=== PATIENT | female | born 1970 | race Caucasian/White ===

== ENCOUNTER 2016-11-10 23:59 | Emergency (ER) | payer BC ==
[2016-11-11 00:05] VITALS: TEMP 97.3
[2016-11-11] MEDS ORDERED: ASPIRIN 81 MG CHEW PO STA (00:27)
--- NOTE | 2016-11-11 00:35 | ED ---
Chest Pain HPI - General Chief Complaint: Chest Pain Stated Complaint: CHEST PAIN Time Seen by Provider: 11/11/16 00:27 Source: patient, RN notes reviewed Mode of arrival: wheelchair Limitations: no limitations - History of Present Illness Initial Comments: This a 46-year-old female presents emergency Department with chief complaint of epigastric pain, arm pain on and off for years. Patient states that she's had this for several years but was more prevalent today in which she had 4 episodes that lasted approximately 10-20 minutes. She states that she gets epigastric pain and she gets pain in bilateral arms, hand region. She denies any weakness. Denies any nausea, vomiting, diarrhea constipation. Patient states she has no history of diabetes, hypertension, hyperlipidemia. Patient is a daily smoker. She has no family history. Patient denies any associated symptoms other than the hand pain with her epigastric pain. She states nothing provokes her pain and nothing seems to subside it when present. This is not associated with food. Patient had a prior cholecystectomy. - Related Data Home Medications Medication Instructions Recorded Confirmed No Known Home Medications [No 06/12/15 11/11/16 Known Home Medications] Allergies Allergy/AdvReac Type Severity Reaction Status Date / Time No Known Allergies Allergy Verified 11/11/16 00:05 Review of Systems ROS Statement: Those systems with pertinent positive or pertinent negative responses have been documented in the HPI. ROS Other: All systems not noted in ROS Statement are negative. EKG Findings - EKG Comments: EKG Findings:: EKG performed at 0:23 normal sinus rhythm with incomplete right bundle kayla block rate of 71, AR interval 122, QRS duration 106, QT/QTC 434/ 471 Past Medical History Additional Past Medical History / Comment(s): anemia, History of Any Multi-Drug Resistant Organisms: None Reported Past Surgical History: Section, Cholecystectomy, Hysterectomy Past Psychological History: Anxiety Smoking Status: Current every day smoker Past Alcohol Use History: None Reported Past Drug Use History: None Reported General Exam Limitations: no limitations General appearance: alert, in no apparent distress Head exam: Present: atraumatic, normocephalic, normal inspection Eye exam: Present: normal appearance, PERRL, EOMI. Absent: scleral icterus, conjunctival injection, periorbital swelling ENT exam: Present: normal exam, normal oropharynx, mucous membranes moist, TM's normal bilaterally, normal external ear exam Neck exam: Present: normal inspection, full ROM. Absent: tenderness, meningismus, lymphadenopathy Respiratory exam: Present: normal lung sounds bilaterally. Absent: respiratory distress, wheezes, rales, rhonchi, stridor, chest wall tenderness, accessory muscle use Cardiovascular Exam: Present: regular rate, normal rhythm, normal heart sounds. Absent: systolic murmur, diastolic murmur, rubs, gallop, clicks GI/Abdominal exam: Present: soft, normal bowel sounds. Absent: distended, tenderness, guarding, rebound, rigid Back exam: Absent: CVA tenderness (R), CVA tenderness (L) Neurological exam: Present: alert Course Vital Signs 11/11/16 00:02 Temperature 97.3 F L Pulse Rate 83 Respiratory 18 Rate Blood Pressure 132/73 O2 Sat by Pulse 99 Oximetry Chest Pain MDM - MDM 46-year-old female presents emergency department for chest pain. Patient's chest pain has been present for years. This is atypical chest pain and less likely cardiac in nature. Patient's pain may related to anxiety as a comes and goes. Patient will be discharged at this time with follow-up with her primary care physician. Return parameters were discussed. Disposition Clinical Impression: Atypical chest pain Disposition: HOME SELF-CARE Condition: Stable Instructions: Chest Pain (ED) Additional Instructions: Follow-up with your primary care physician in one to 2 days.Please return to the Emergency Department if symptoms worsen or any other concerns. Time of Disposition: 02:11
[2016-11-11 01:15] LABS: Basophils # (A) 0.1 k/uL (0-0.2); Basophils % (A) 1 %; CH 34.8; CHCM 33.6; Eosinophils # (A) 0.1 k/uL (0-0.7); Eosinophils % (A) 1 %; HDW 2.27; HGB 13.2 gm/dL (11.4-16.0); Luc # (Auto) 0.12; Luc % (Auto) 2; Lymphocytes # (A) 2.6 k/uL (1.0-4.8); Lymphocytes % (A) 38 %; MCH 34.2 pg (25.0-35.0); MCHC 32.9 g/dL (31.0-37.0); MCV 103.9 fL (80.0-100.0); Macrocytosis Slight; Mean Platelet Volume 6.7; Monocytes # (A) 0.4 k/uL (0-1.0); Monocytes % (A) 5 %; Neutrophils # (A) 3.6 k/uL (1.3-7.7); Neutrophils % (A) 53 %; RBC 3.85 m/uL (3.80-5.40); RDW 13.2 % (11.5-15.5); WBC 6.9 k/uL (3.8-10.6); WBC (Perox) 6.72
--- NOTE | 2016-11-11 01:15 | XR ---
EXAM: XR Chest, 2 Views. CLINICAL HISTORY: Reason: Chest Pain TECHNIQUE: Frontal and lateral views of the chest. COMPARISON: None FINDINGS: Hardware: None. Lungs/pleura: Normal. No focal consolidation. No pleural effusion or pneumothorax. Heart/mediastinum: Normal. No cardiomegaly. Soft tissues: Unremarkable. Bones: No acute fracture. Upper abdomen: Normal. IMPRESSION: No acute disease.
[2016-11-11 01:25] LABS: ALT 27 U/L (9-52); AST 15 U/L (14-36); Alkaline Phosphatase 39 U/L (38-126); Anion Gap 8 mmol/L; Blood Urea Nitrogen 12 mg/dL (7-17); Calcium 9.5 mg/dL (8.4-10.2); Carbon Dioxide 22 mmol/L (22-30); Chloride 109 mmol/L (98-107); Glucose 87 mg/dL (74-99); Magnesium 1.9 mg/dL (1.6-2.3); Non-African American GFR(MDRD) >60 (>60 ml/min/1.73 sqM); Potassium 3.8 mmol/L (3.5-5.1); Sodium 139 mmol/L (137-145); Total Bilirubin 0.3 mg/dL (0.2-1.3)
[2016-11-11 01:41] LABS: Partial Thromboplastin Time 24.8 sec (22.0-30.0); Prothrombin Time 10.1 sec (9.0-12.0)
[2016-11-11 01:52] LABS: Creatine Kinase 78 U/L (30-135)
[2016-11-11 02:05] LABS: Creatine Kinase MB 1.3 ng/mL (0.0-2.4); Troponin I <0.012 ng/mL (0.000-0.034)
[2016-11-11 02:25] VITALS: BP 105/55; PULSE 73; RESP 16
== END 2016-11-11 02:19 | disposition home or self-care (01) ==
LOC: EC 23:59
DX: R07.89 Other chest pain (principal); M79.641 Pain in right hand; M79.642 Pain in left hand; F17.200 Nicotine dependence, unspecified, uncomplicated; Z90.49 Acquired absence of other specified parts of digestive tract
CPT/HCPCS: 36415; 71020; 80053; 82550; 82553; 83735; 84484; 85025; 85610; 85730; 93005; 99285

== ENCOUNTER → 2020-10-05 | Outpatient (CLI) | payer BC ==
--- NOTE | 2020-10-05 16:01 | US ---
EXAMINATION TYPE: US carotid duplex BILAT DATE OF EXAM: 10/05/2020 COMPARISON: NONE CLINICAL HISTORY: I65.23 occlusion and stenosis of bilateral. stenosis EXAM MEASUREMENTS: RIGHT: Peak Systolic Velocity (PSV) cm/sec ----- Right CCA: 130 ----- Right ICA: 139 ----- Right ECA: 153 ICA/CCA ratio: 1.1 RIGHT: End Diastole cm/sec ----- Right CCA: 47.6 ----- Right ICA: 49.7 ----- Right ECA: 23.2 LEFT: Peak Systolic Velocity (PSV) cm/sec ----- Left CCA: 135 ----- Left ICA: 142 ----- Left ECA: 135 ICA/CCA ratio: 1.1 LEFT: End Diastole cm/sec ----- Left CCA: 47.2 ----- Left ICA: 50.6 ----- Left ECA: 36.9 VERTEBRALS (direction of flow): Right Vertebral: Antegrade Left Vertebral: Antegrade Rhythm: Normal No significant stenosis seen IMPRESSION: There are elevated velocities in the internal carotid arteries bilaterally. Correlate fo r narrowing between 50-69%. Vascular anomaly to account for this elevated velocity such as a large pl aques or intimal thickening however not identified. Consider additional workup identified etiology th e elevated velocities. Criteria for Assigning % of Stenosis / Diameter reduction (Estimation based on the indirect measurements of the internal carotid artery velocities (ICA PSV). 1. Normal (no stenosis)=ICA PSV < 125 cm/s: ratio < 2.0: ICA EDV<40 cm/s. 2. Less than 50% stenosis=ICA PSV < 125 cm/s: ratio < 2.0: ICA EDV<40 cm/s. 3. 50 to 69% stenosis=ICA PSV of 125 to 230 cm/s: ration 2.0 ? 4.0: ICA EDV 40-100 cm/s. 4. Greater than 70% stenosis to near occlusion= ICA PSV > 230 cm/s: ratio > 4.0: ICA EDV > 100 cm/s. 5. Near occlusion= ICA PSV velocities may be low or undetectable: variable ratio and ICA EDV. 6. Total occlusion=unable to detect flow.
== END ==
LOC: RADUSWWP 15:21
PROVIDERS: ATTEND Family Medicine
DX: I65.23 Occlusion and stenosis of bilateral carotid arteries (principal)
CPT/HCPCS: 93880

== ENCOUNTER → 2020-10-09 | Outpatient (CLI) | payer BC ==
--- NOTE | 2020-10-09 19:00 | ECHOF ---
Referral Reason:R06.00 Dyspnea MEASUREMENTS -------- HEIGHT: 152.4 cm WEIGHT: 53.5 kg BP: RVIDd: 2.4 cm (< 3.3) IVSd: 0.8 cm (0.6 - 1.1) LVIDd: 3.8 cm (3.9 - 5.3) LVPWd: 0.9 cm (0.6 - 1.1) IVSs: 1.1 cm LVIDs: 2.9 cm LVPWs: 1.1 cm LAESV Index (A-L): 16.36 ml/m Ao Diam: 2.8 cm (2.0 - 3.7) AV Cusp: 1.9 cm (1.5 - 2.6) MV EXCURSION: 22.126 mm (> 18.000) MV EF SLOPE: 73 mm/s (70 - 150) EPSS: 0.3 cm MV E Judd: 0.58 m/s MV DecT: 236 ms MV A Judd: 0.50 m/s MV E/A Ratio: 1.17 RAP: 5.00 mmHg RVSP: 24.18 mmHg FINDINGS -------- Sinus rhythm. This was a technically adequate study. LV size, wall thickness and systolic function are normal, with an EF greater than 55%. The left bella tricular size is normal. The diastolic filling pattern is normal for the age of the patient 7.09. The right ventricle is normal in size. Normal LA size by volume 22+/-6 ml/m2. The right atrial size is normal. The aortic valve is trileaflet, and appears structurally normal. No aortic stenosis or regurgitation. The mitral valve leaflets are mildly thickened. Mild mitral regurgitation is present. The tricuspid valve appears structurally normal. Mild tricuspid regurgitation present. Right vent ricular systolic pressure is normal at < 35 mmHg. There is no evidence of pulmonary hypertension. There is no pulmonic regurgitation present. The aortic root size is normal. There is no pericardial effusion. CONCLUSIONS -------- 1. LV size, wall thickness and systolic function are normal, with an EF greater than 55%. 2. Normal LA size by volume 22+/-6 ml/m2. 3. The aortic valve is trileaflet, and appears structurally normal. No aortic stenosis or regurgitati on. 4. Mild mitral regurgitation is present. 5. Mild tricuspid regurgitation present. 6. There is no pericardial effusion. ATMOSPHERIC PHYSICS PROFESSOR: Jojo Hernandez RDCS
== END ==
LOC: RADECHMAIN 12:03
PROVIDERS: ATTEND Family Medicine
DX: I08.1 Rheumatic disorders of both mitral and tricuspid valves (principal)
CPT/HCPCS: 93306

== ENCOUNTER → 2022-01-15 | Outpatient (CLI) | payer BC ==
--- NOTE | 2022-01-16 05:54 | MR ---
EXAMINATION TYPE: MR hand RT wo/w con DATE OF EXAM: 01/15/2022 COMPARISON: None HISTORY: Mass first webspace R hand, pain CONTRAST: Standard multiplanar, multisequence MRI departmental protocol images were obtained without contrast a nd with 5.5 mL intravenous Gadavist gadolinium contrast. There is a marker placed on the dorsum of the hand between the first and second metacarpals. No soft tissue mass seen. Carpal bones are intact. Metacarpals are intact. There is no evidence of a fracture . No evidence of focal bone destruction. No pathologic fluid collection. Digital bones appear intact Contrast images show no pathologic enhancement. IMPRESSION: Negative MR scan of the right hand. No evidence of a mass
== END | disposition home or self-care (01) ==
LOC: RADMRIMAIN 07:49
PROVIDERS: ATTEND Orthopaedic Surgery
DX: M79.641 Pain in right hand (principal); R22.31 Localized swelling, mass and lump, right upper limb
CPT/HCPCS: 73220; A9585

== ENCOUNTER 2022-01-20 14:21 | Observation (INO) | payer BC ==
[2022-01-20] MEDS ORDERED: NITROGLYCERIN OINT 1 INCH/GM PACKET TOPICAL STA (14:51)
[2022-01-20] MEDS ORDERED: ASPIRIN 81 MG PO STA (14:51)
--- NOTE | 2022-01-20 14:56 | ED ---
General Adult HPI - General Chief complaint: Chest Pain Stated complaint: Chest Pain, Heart history Time Seen by Provider: 01/20/22 14:25 Source: patient, RN notes reviewed, old records reviewed Mode of arrival: ambulatory Limitations: no limitations - History of Present Illness Initial comments: This is a 51-year-old female with past medical history significant for smoking and bypass surgery. Patient states since Thursday she's been having intermittent chest pain with radiation of the pain to her back and down both arms. Patient states it typically last 3-4 minutes but is the same kind of pain she had when she had her bypass surgery. Patient denies any shortness of breath. Patient denies any diaphoretic episodes. Patient denies any nausea. Patient denies any abdominal pain. Patient denies any recent fever chills or cough. Patient denies any lightheadedness or dizziness or near syncopal episode. Patient denies swelling to the legs or calf tenderness. - Related Data Home Medications Medication Instructions Recorded Confirmed Aspirin EC [Ecotrin Low Dose] 81 mg PO DAILY 01/20/22 01/20/22 Atorvastatin Calcium [Lipitor] 40 mg PO HS 01/20/22 01/20/22 Rivaroxaban [Xarelto] 2.5 mg PO DAILY 01/20/22 01/20/22 Allergies Allergy/AdvReac Type Severity Reaction Status Date / Time No Known Allergies Allergy Verified 01/20/22 16:45 Review of Systems ROS Statement: Those systems with pertinent positive or pertinent negative responses have been documented in the HPI. ROS Other: All systems not noted in ROS Statement are negative. Past Medical History Past Medical History: Coronary Artery Disease (CAD) Additional Past Medical History / Comment(s): anemia, History of Any Multi-Drug Resistant Organisms: None Reported Past Surgical History: Section, Cholecystectomy, Hysterectomy Additional Past Surgical History / Comment(s): cabg 2017 Past Psychological History: Anxiety Smoking Status: Current every day smoker Past Alcohol Use History: None Reported Past Drug Use History: None Reported General Exam - General Exam Comments Initial Comments: GENERAL: Patient is well-developed and well-nourished. Patient is nontoxic and well- hydrated and is in mild distress. ENT: Neck is soft and supple. No significant lymphadenopathy is noted. Oropharynx is clear. Moist mucous membranes. Neck has full range of motion without eliciting any pain. EYES: The sclera were anicteric and conjunctiva were pink and moist. Extraocular movements were intact and pupils were equal round and reactive to light. Eyelids were unremarkable. PULMONARY: Unlabored respirations. Good breath sounds bilaterally. No audible rales rhonchi or wheezing was noted. CARDIOVASCULAR: There is a regular rate and rhythm without any murmurs gallops or rubs. ABDOMEN: Soft and nontender with normal bowel sounds. SKIN: Skin is clear with no lesions or rashes and otherwise unremarkable. NEUROLOGIC: Patient is alert and oriented x3. Cranial nerves II through XII are grossly intact. Motor and sensory are also intact. Normal speech, volume and content. Symmetrical smile. MUSCULOSKELETAL: Normal extremities with adequate strength and full range of motion. LYMPHATICS: No significant lymphadenopathy is noted PSYCHIATRIC: Normal psychiatric evaluation. Limitations: no limitations Course Vital Signs 01/20/22 14:23 Temperature 97.1 F L Pulse Rate 61 Respiratory 18 Rate Blood Pressure 103/67 O2 Sat by Pulse 98 Oximetry Medical Decision Making - Medical Decision Making EKG shows sinus tachycardia at 103 bpm SC interval is 116 QRS is 98 QT interval 340 QTC is 408. Patient's EKG shows ST segment depression in leads II, III, and F aVF as well as T-wave inversions in precordial leads V3 through V6. Patient's chest x-ray showed no acute abnormality. I started the patient on heparin for the unstable angina she was feeling considerably better when I went back and interviewed her. She thinks Nitropaste may help. I spoke with some physicians agreed to admit the patient admitted the patient wrote admitting orders. - Lab Data Result diagrams: 01/20/22 14:58 01/20/22 14:58 Lab Results 01/20/22 01/20/22 01/20/22 Range/Units 14:58 14:58 14:58 WBC 8.1 (3.8-10.6) k/uL RBC 4.34 (3.80-5.40) m/uL Hgb 14.3 (11.4-16.0) gm/dL Hct 43.1 (34.0-46.0) % MCV 99.3 (80.0-100.0) fL MCH 32.9 (25.0-35.0) pg MCHC 33.1 (31.0-37.0) g/dL RDW 12.7 (11.5-15.5) % Plt Count 264 (150-450) k/uL MPV 7.0 Neutrophils % 62 % Lymphocytes % 28 % Monocytes % 6 % Eosinophils % 2 % Basophils % 1 % Neutrophils # 5.0 (1.3-7.7) k/uL Lymphocytes # 2.3 (1.0-4.8) k/uL Monocytes # 0.5 (0-1.0) k/uL Eosinophils # 0.2 (0-0.7) k/uL Basophils # 0.1 (0-0.2) k/uL PT 10.3 (9.0-12.0) sec INR 0.9 (<1.2) APTT 24.3 (22.0-30.0) sec Sodium 138 (137-145) mmol/L Potassium 3.9 (3.5-5.1) mmol/L Chloride 109 H (98-107) mmol/L Carbon Dioxide 24 (22-30) mmol/L Anion Gap 5 mmol/L BUN 12 (7-17) mg/dL Creatinine 0.98 (0.52-1.04) mg/dL Est GFR (CKD-EPI)AfAm 76 (>60 ml/min/1.73 sqM) Est GFR (CKD-EPI)NonAf 66 (>60 ml/min/1.73 sqM) Glucose 109 H (74-99) mg/dL Calcium 9.5 (8.4-10.2) mg/dL Magnesium 1.8 (1.6-2.3) mg/dL Total Bilirubin 0.3 (0.2-1.3) mg/dL AST 20 (14-36) U/L ALT 17 (4-34) U/L Alkaline Phosphatase 60 (38-126) U/L Troponin I (0.000-0.034) ng/mL NT-Pro-B Natriuret Pep pg/mL Total Protein 6.4 (6.3-8.2) g/dL Albumin 4.0 (3.5-5.0) g/dL 01/20/22 01/20/22 Range/Units 14:58 14:58 WBC (3.8-10.6) k/uL RBC (3.80-5.40) m/uL Hgb (11.4-16.0) gm/dL Hct (34.0-46.0) % MCV (80.0-100.0) fL MCH (25.0-35.0) pg MCHC (31.0-37.0) g/dL RDW (11.5-15.5) % Plt Count (150-450) k/uL MPV Neutrophils % % Lymphocytes % % Monocytes % % Eosinophils % % Basophils % % Neutrophils # (1.3-7.7) k/uL Lymphocytes # (1.0-4.8) k/uL Monocytes # (0-1.0) k/uL Eosinophils # (0-0.7) k/uL Basophils # (0-0.2) k/uL PT (9.0-12.0) sec INR (<1.2) APTT (22.0-30.0) sec Sodium (137-145) mmol/L Potassium (3.5-5.1) mmol/L Chloride (98-107) mmol/L Carbon Dioxide (22-30) mmol/L Anion Gap mmol/L BUN (7-17) mg/dL Creatinine (0.52-1.04) mg/dL Est GFR (CKD-EPI)AfAm (>60 ml/min/1.73 sqM) Est GFR (CKD-EPI)NonAf (>60 ml/min/1.73 sqM) Glucose (74-99) mg/dL Calcium (8.4-10.2) mg/dL Magnesium (1.6-2.3) mg/dL Total Bilirubin (0.2-1.3) mg/dL AST (14-36) U/L ALT (4-34) U/L Alkaline Phosphatase (38-126) U/L Troponin I <0.012 (0.000-0.034) ng/mL NT-Pro-B Natriuret Pep 54 pg/mL Total Protein (6.3-8.2) g/dL Albumin (3.5-5.0) g/dL Critical Care Time Critical Care Time: Yes Total Critical Care Time: 35 Disposition Clinical Impression: Unstable angina pectoris Disposition: ADMITTED IP TO THIS HOSP Referrals: Roberto Campoverde MD [Primary Care Provider] - 1-2 days
--- NOTE | 2022-01-20 15:17 | XR ---
EXAMINATION TYPE: XR chest 2V DATE OF EXAM: 01/20/2022 COMPARISON: 12/23/2021 INDICATION: Chest pain TECHNIQUE: Single frontal view of the chest is obtained. FINDINGS: The heart size is normal. The pulmonary vasculature is normal. The lungs are clear. Epicardial leads are evident. Sternotomy wires are present from prior CABG. IMPRESSION: 1. No acute pulmonary process.
[2022-01-20 15:20] LABS: Basophils # (A) 0.1 k/uL (0-0.2); Basophils % (A) 1 %; Eosinophils # (A) 0.2 k/uL (0-0.7); Eosinophils % (A) 2 %; HCT 43.1 % (34.0-46.0); HGB 14.3 gm/dL (11.4-16.0); Lymphocytes # (A) 2.3 k/uL (1.0-4.8); Lymphocytes % (A) 28 %; MCH 32.9 pg (25.0-35.0); MCHC 33.1 g/dL (31.0-37.0); MCV 99.3 fL (80.0-100.0); Monocytes # (A) 0.5 k/uL (0-1.0); Monocytes % (A) 6 %; Neutrophils % (A) 62 %; Platelet Count 264 k/uL (150-450); RBC 4.34 m/uL (3.80-5.40); RDW 12.7 % (11.5-15.5); WBC 8.1 k/uL (3.8-10.6)
[2022-01-20 15:39] LABS: INR 0.9 (<1.2); Partial Thromboplastin Time 24.3 sec (22.0-30.0); Prothrombin Time 10.3 sec (9.0-12.0)
[2022-01-20 15:40] LABS: Calcium 9.5 mg/dL (8.4-10.2); Magnesium 1.8 mg/dL (1.6-2.3); Potassium 3.9 mmol/L (3.5-5.1); Total Bilirubin 0.3 mg/dL (0.2-1.3); Total Protein 6.4 g/dL (6.3-8.2)
[2022-01-20] MEDS ORDERED: HEPARIN SODIUM 1,000 UN/ML (10ML VL) IV ONE (17:08)
[2022-01-20] MEDS ORDERED: HEPARIN SOD,PORK IN 0.45% NACL 25,000 UNIT in 0.45% NACL 1 250ML.BAG IV SCH (17:15)
[2022-01-20] MEDS ORDERED: NITROGLYCERIN SL TABS 0.4 MG TAB SUBLINGUAL PRN (17:18)
[2022-01-20] MEDS ORDERED: NITROGLYCERIN OINT 1 INCH/GM PACKET TOPICAL SCH (18:00)
--- NOTE | 2022-01-20 18:12 | P.HPIM ---
History of Present Illness H&P Date: 01/20/22 History of Presenting Illness: Patient is a 51-year-old female with a past medical history of sudden cardiac arrest with ROSC followed by CABG x 3 in 2017 and nicotine dependence smoking one pack of cigarettes daily. 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 She reports her PCP manages her medications and states that he recently about one year ago started her on Xarelto for cardiovascular event risk reduction. Patient presented to the emergency department today with a chief complaint of chest pain. She reports that she had been experiencing intermittent pain to midsternal chest radiating into her back and down both arms. Patient reports this pain has waxed and waned since Thursday and seems to be worse with activity, patient reports it is the same feeling she had prior to her cardiac arrest resulting in her CABG. Patient denies having any headache, lightheadedness, dizziness, diaphoresis, palpitations, shortness of breath, cough or congestion, nausea, vomiting, or experiencing any numbness/tingling/weakness/swelling in her extremities. Patient states she is on aspirin 81 mg daily, atorvastatin 40 mg daily, and Xarelto 2.5 mg daily. She denies missing any of her medications. She does admit to smoking approximately one pack of cigarettes daily or so. She denies any alcohol or drug use. Patient underwent full evaluation in the emergency department. EKG revealing sinus tachycardia at [address] depression in inferior leads II, III, and aVF. Chest x-ray negative for acute cardiopulmonary process. CBC, coags, and CMP unremarkable. Troponin less than 0.012. Patient was given aspirin 324 mg 1 dose along with Nitro past and started on Heparin infusion for unstable angina. Patient has been admitted under our services with consultation to cardiology. Review of systems: Pertinent positives and negatives as discussed in HPI, a complete review of systems was performed and all other systems are negative. Physical exam: Vital signs reviewed and stable. General: Nontoxic, no distress and appears stated age. Derm: Skin warm and dry, normal coloration for ethnicity. Head: Atraumatic, normocephalic and symmetric. Eyes: EOMs intact, no lid lag, and anicteric sclera Mouth: no lip lesions, mucus membranes moist Cardiovascular: regular rate and rhythm with normal S1S2, soft systolic murmur, positive posterior tibial pulses bilaterally, and cap refill < 2 seconds. Lungs: Respirations even, regular, and unlabored on room air. Lungs CTA bilaterally, no rhonchi, no rales, no wheezing, and no accessory muscle usage. Abdominal: soft, nontender to palpation, no guarding, no appreciable organomegaly Ext: ROM intact. No gross muscle atrophy, no edema, no contractures Neuro: Speech clear, face symmetrical and CN II-XII grossly intact with no noted focal neuro deficits Psych: Alert and oriented to person, place, time, and situation. Appropriate and pleasant affect. Assessment and Plan of Care: Unstable angina Chest pain, rule out acute coronary event History of CAD with CABG x 3 -Cardiology consulted, appreciate further recommendations -Telemetry monitoring -Trend troponins -Cardiac diet, NPO at midnight -Aspirin, atorvastatin, Nitropaste and continuation of heparin infusion -Lipid profile with a.m. labs. -Echocardiogram Nicotine dependence -Patient to receive continued encouragement and education on the importance of smoking cessation and the risks associated with continued use. -Nicotine patch The patient is admitted with an anticipated less than 2 midnight stay for evaluation of chest pain. CODE STATUS: Full code DVT prophylaxis: Heparin Discussed with: Patient and her Anticipated discharge date: 1-[address]: Home A total of 45 minutes was spent on the care of this complex patient more than 50% of the time was spent in counseling and care coordination. Past Medical History Past Medical History: Coronary Artery Disease (CAD) Additional Past Medical History / Comment(s): anemia, History of Any Multi-Drug Resistant Organisms: None Reported Past Surgical History: Section, Cholecystectomy, Hysterectomy Additional Past Surgical History / Comment(s): cabg 2016 Past Psychological History: Anxiety Smoking Status: Current every day smoker Past Alcohol Use History: None Reported Past Drug Use History: None Reported Medications and Allergies Home Medications Medication Instructions Recorded Confirmed Type Aspirin EC [Ecotrin Low Dose] 81 mg PO DAILY 01/20/22 01/20/22 History Atorvastatin Calcium [Lipitor] 40 mg PO HS 01/20/22 01/20/22 History Rivaroxaban [Xarelto] 2.5 mg PO DAILY 01/20/22 01/20/22 History Allergies Allergy/AdvReac Type Severity Reaction Status Date / Time No Known Allergies Allergy Verified 01/20/22 16:45 Physical Exam Vitals: Vital Signs Temp Pulse Resp BP Pulse Ox 01/20/22 14:23 97.1 F L 61 18 103/67 98 Intake and Output 01/20/22 01/20/22 01/20/22 06:59 14:59 22:59 Other: Weight 55.338 kg Results CBC & Chem 7: 01/20/22 14:58 01/20/22 14:58 Labs: Abnormal Lab Results - Last 24 Hours (Table) 01/20/22 Range/Units 14:58 Chloride 109 H (98-107) mmol/L Glucose 109 H (74-99) mg/dL
[2022-01-20] MEDS ORDERED: ATORVASTATIN 40 MG TAB PO SCH (21:00)
[2022-01-20] MEDS: NITROGLYCERIN OINT 1 INCH/GM PACKET TOPICAL SCH (22:27)
[2022-01-21] MEDS: NITROGLYCERIN OINT 1 INCH/GM PACKET TOPICAL SCH (03:28)
[2022-01-21] MEDS: NICOTINE 21MG/24HR PATCH TRANSDERM SCH ×2 (03:28→08:38)
[2022-01-21] MEDS ORDERED: HEPARIN SODIUM 1,000 UN/ML (10ML VL) IV ONE (07:24)
[2022-01-21 07:30] VITALS: RESP 16
[2022-01-21] MEDS ORDERED: REGADENOSON 0.4 MG/5 ML SYRINGE IV PRN (08:33)
[2022-01-21] MEDS ORDERED: AMINOPHYLLINE 500 MG/20 ML VIAL IV PRN (08:33)
[2022-01-21] MEDS ORDERED: CAFFEINE CITRATE 60 MG/3 ML VIAL IV PRN (08:33)
[2022-01-21] MEDS ORDERED: ASPIRIN 325 MG TAB PO SCH (09:00)
[2022-01-21 09:56] LABS: Chol/HDL Ratio 2.21 Ratio; LDL Cholesterol,Calculated 65.8 mg/dL (0.0-131.0); VLDL Calculation 12.92 mg/dL (5.00-40.00)
--- NOTE | 2022-01-21 10:31 | P.CRDCN ---
History of Present Illness History of present illness: HISTORY OF PRESENTING ILLNESS This is a pleasant 51-year-old female past medical history significant for coronary artery disease s/p CABG in 2017 and cardiac arrest at that time at [place], [facility]. She did follow with Dr. Root, but currently does not see a coat fitter regularly. She sees Dr. Trejo as her primary. We have been asked to see in consultation for chest pain. Patient presents emergency department with complaints of chest pain. She states yesterday she was having right sided and midsternal chest pain. Non-exertional, she was having the pain at rest. Intermittent, lasting 3-4 minutes at a time. Having the chest discomfort about 4 times a day. Radiating to her bilateral arms. She has associated lightheadedness and headache. She denies any associated shortness of breath, dizziness, palpitations, diaphoresis, nausea, vomiting. She denies any syncope or loss of consciousness. She denies any symptoms of orthopnea or PND. She states the symptoms were similar to when she had a cardiac arrest in 2017/presents emergency department for reevaluation. Patient states she is on Xarelto per Dr. Kelsey, which she saw years ago and had an ultrasound of her bilateral legs, was told that was normal. She currently smokes 1 PPD. DIAGNOSTICS EKG reveals sinus tachycardia, heart rate 103, short DC, incomplete right bundle branch block, ST depression in inferior and anterior leads noted. Repeat EKG this morning revealed sinus bradycardia with heart rate 52, incomplete left bundle branch block, no ST depressions noted, nonspecific abnormalities. Telemetry tracings indicate sinus rhythm with heart rate in the 50s to 60s Chest xray no acute cardiopulmonary process Laboratory reviewed, troponin negative 3, proBNP 54, triglycerides 64, LDL 65, HDL 65, cholesterol 144, sodium 138, potassium 3.9, BUN 12, serum creatinine 0.9, magnesium 1.8, CBC unremarkable Current home medications include Xarelto 25 mg daily, aspirin 81 mg daily, atorvastatin 40 mg nightly REVIEW OF SYSTEMS CONSTITUTIONAL: Denies fever or chills. CARDIOVASCULAR: + chest pain, Denies shortness of breath, orthopnea, PND or palpitations. RESPIRATORY: Denies cough. GASTROINTESTINAL: Denies abdominal pain, diarrhea, constipation, nausea or vomiting. MUSCULOSKELETAL: Denies myalgias. NEUROLOGIC: Denies numbness, tingling, headache or weakness. ENDOCRINE: Denies fatigue, weight change, polydipsia or polyurina. GENITOURINARY: Denies burning, hematuria or urgency with micturation. HEMATOLOGIC: Denies history of anemia or bleeding. PHYSICAL EXAMINATION Blood pressure 103/66, heart rate 56, afebrile, oxygen saturation 97% on room air CONSTITUTIONAL: No apparent distress. HEENT: Head is normocephalic. Pupils are equal, round. Sclerae anicteric. Mucous membranes of the mouth are moist. No JVD. No carotid bruit. CHEST EXAMINATION: Lungs are clear to auscultation. No chest wall tenderness is noted on palpation or with deep breathing. HEART EXAMINATION: Regular rate and rhythm. S1, S2 heard. No murmurs, gallops or rub. ABDOMEN: Soft, nontender. Positive bowel sounds. EXTREMITIES: 2+ peripheral pulses, no lower extremity edema and no calf tenderness. SKIN:warm, dry NEUROLOGIC EXAMINATION: Patient is awake, alert and oriented x3. ASSESSMENT Chest pain, atypical, acute coronary syndrome has been ruled out Hypotension History of hyperlipidemia Coronary artery disease s/p CABG in 2017 PLAN An acute coronary event has been ruled out with no EKG evidence of ischemia and negative cardiac enzymes. Obtain 2D echocardiogram and doppler study to assess cardiac structure and function. Perform Lexiscan stress test to assess for stress induced cardiac ischemia. If abnormal will consider coronary angiography. If stress test is negative, no further inpatient testing at this time from a cardiology perspective Smoking cessation discussed and highly recommended. Recommend close follow up with Cardiology as an outpatient Thank you kindly for this consultation. Nurse practitioner note has been reviewed by physician. Signing provider agrees with the documented findings, assessment, and plan of care. Past Medical History Past Medical History: Coronary Artery Disease (CAD) Additional Past Medical History / Comment(s): anemia, History of Any Multi-Drug Resistant Organisms: None Reported Past Surgical History: Section, Cholecystectomy, Hysterectomy Additional Past Surgical History / Comment(s): cabg 2017 Past Anesthesia/Blood Transfusion Reactions: No Reported Reaction Past Psychological History: Anxiety Smoking Status: Current every day smoker Past Alcohol Use History: None Reported Past Drug Use History: None Reported Medications and Allergies Home Medications Medication Instructions Recorded Confirmed Type Aspirin EC [Ecotrin Low Dose] 81 mg PO DAILY 01/20/22 01/20/22 History Atorvastatin Calcium [Lipitor] 40 mg PO HS 01/20/22 01/20/22 History Rivaroxaban [Xarelto] 2.5 mg PO DAILY 01/20/22 01/20/22 History Allergies Allergy/AdvReac Type Severity Reaction Status Date / Time No Known Allergies Allergy Verified 01/20/22 16:45 Physical Exam Vitals: Vital Signs Temp Pulse Pulse Resp BP BP Pulse Ox 01/21/22 01:37 97.9 F 60 17 105/63 98 01/20/22 22:47 97.9 F 66 18 108/67 96 01/20/22 22:34 77 20 107/57 97 01/20/22 21:30 62 15 105/64 01/20/22 21:00 64 16 102/56 01/20/22 20:00 73 15 111/67 97 01/20/22 19:50 64 16 97 01/20/22 19:40 67 18 97 01/20/22 19:30 70 14 99 01/20/22 19:20 66 20 97 01/20/22 19:10 64 18 97 01/20/22 19:00 65 92/61 98 01/20/22 17:35 71 18 105/70 97 01/20/22 16:40 74 18 97 01/20/22 16:00 78 22 98 01/20/22 14:23 97.1 F L 61 18 103/67 98 Intake and Output 01/20/22 01/21/22 01/21/22 22:59 06:59 14:59 Intake Total 40.067 Balance 40.067 Intake: Intake, IV Titration 40.067 Amount Heparin Sod,Pork in 0.45% 40.067 NaCl 25,000 unit In 0.45 % NaCl 1 250ml.bag @ 12 UNITS/KG/HR 6.641 mls/hr IV .Q24H [facility] Rx#: [id number] Other: # Voids 1 1 Weight 55.338 kg Results 01/20/22 14:58 01/20/22 14:58 Cardiac Enzymes 01/20/22 01/20/22 01/20/22 Range/Units 14:58 14:58 18:36 AST 20 (14-36) U/L Troponin I <0.012 <0.012 (0.000-0.034) ng/mL 01/20/22 Range/Units 21:33 AST (14-36) U/L Troponin I <0.012 (0.000-0.034) ng/mL Coagulation 01/20/22 01/20/22 01/21/22 Range/Units 14:58 22:57 06:25 PT 10.3 (9.0-12.0) sec APTT 24.3 43.6 H 36.9 H (22.0-30.0) sec CBC 01/20/22 Range/Units 14:58 WBC 8.1 (3.8-10.6) k/uL RBC 4.34 (3.80-5.40) m/uL Hgb 14.3 (11.4-16.0) gm/dL Hct 43.1 (34.0-46.0) % Plt Count 264 (150-450) k/uL Comprehensive Metabolic Panel 01/20/22 Range/Units 14:58 Sodium 138 (137-145) mmol/L Potassium 3.9 (3.5-5.1) mmol/L Chloride 109 H (98-107) mmol/L Carbon Dioxide 24 (22-30) mmol/L BUN 12 (7-17) mg/dL Creatinine 0.98 (0.52-1.04) mg/dL Glucose 109 H (74-99) mg/dL Calcium 9.5 (8.4-10.2) mg/dL AST 20 (14-36) U/L ALT 17 (4-34) U/L Alkaline Phosphatase 60 (38-126) U/L Total Protein 6.4 (6.3-8.2) g/dL Albumin 4.0 (3.5-5.0) g/dL Current Medications Generic Name Dose Route Start Last Admin Trade Name Freq PRN Reason Stop Dose Admin Aspirin 325 mg 01/21/22 09:00 Aspirin 325 Mg Tab PO DAILY ARLETTE Atorvastatin Calcium 40 mg 01/20/22 21:00 01/20/22 21:20 Atorvastatin 40 Mg Tab PO 40 mg HS ARLETTE Administration Heparin Sodium/Sodium Chloride 250 mls @ 6.641 mls/hr 01/20/22 17:15 01/20/22 23:36 25,000 unit/ Sodium Chloride IV 12 units/kg/hr .Q24H ARLETTE 6.641 mls/hr Titration Protocol 12 UNITS/KG/HR Nicotine 1 patch 01/20/22 18:15 01/21/22 03:28 Nicotine 21mg/24hr Patch TRANSDERM Not Given DAILY ARLETTE Nitroglycerin 0.4 mg 01/20/22 17:18 Nitroglycerin Sl Tabs 0.4 Mg Tab SUBLINGUAL Q5M PRN Chest Pain Nitroglycerin 1 inch 01/20/22 21:00 01/21/22 03:28 Nitroglycerin Oint 1 Inch/Gm Packet TOPICAL Not Given Q6H ARLETTE Intake and Output 01/20/22 01/21/22 01/21/22 22:59 06:59 14:59 Intake Total 40.067 Balance 40.067 Intake: Intake, IV Titration 40.067 Amount Heparin Sod,Pork in 0.45% 40.067 NaCl 25,000 unit In 0.45 % NaCl 1 250ml.bag @ 12 UNITS/KG/HR 6.641 mls/hr IV .Q24H [facility] Rx#: [id number] Other: # Voids 1 1 Weight 55.338 kg 01/20/22 14:58 01/20/22 14:58
[2022-01-21] MEDS ORDERED: AMINOPHYLLINE 500 MG/20 ML VIAL IV ONE (10:38)
--- NOTE | 2022-01-21 12:38 | NM ---
EXAMINATION TYPE: NM stress lexiscan cardiolite DATE OF EXAM: 01/21/2022 COMPARISON: NONE HISTORY: Chest pain TECHNIQUE: After the intravenous administration of 9.6 mCi Tc 99m Sestamibi - Cardiolite resting SPE CT images acquired 45 minutes post injection. The patient received 0.4mg Lexiscan, 25.7 mCi Tc 99m Sestamibi - Stress images obtained [address] injection FINDINGS: Review of stress and rest SPECT images demonstrates no distinct perfusion abnormality. Gated analysi s shows normal wall motion with an estimated left ventricular ejection fraction of 73 %. IMPRESSION: No scintigraphic evidence for reversible ischemia.
[2022-01-21 13:57] VITALS: BP 106/66; PULSE 60; TEMP 97.9
--- NOTE | 2022-01-21 15:23 | CA ---
Transthoracic Echo Report Name: Amparo Jewell Age: 51 Gender: F : 1970 Exam Date: 01/21/2022 10:53 Exam Location: [place] [facility] Ht (in): 62 Wt (lb): 122 Ordering Physician: Shabbir Garcia Attending/Referring Phys: Rcis Ellen Denton RDCS Procedure CPT: Indications: Chest pain, evaluate structure and function Cardiac Hx: Technical Quality: Fair Contrast 1: Total Dose (mL): Contrast 2: Total Dose (mL): MEASUREMENTS (Male / Female) Normal Values 2D ECHO LV Diastolic Diameter PLAX 3.8 cm 4.2 - 5.9 / 3.9 - 5.3 cm LV Systolic Diameter PLAX 2.5 cm IVS Diastolic Thickness 0.9 cm 0.6 - 1.0 / 0.6 - 0.9 cm LVPW Diastolic Thickness 1.0 cm 0.6 - 1.0 / 0.6 - 0.9 cm LV Relative Wall Thickness 0.5 RV Internal Dim ED PLAX 2.7 cm LA Volume 29.6 cm??? 18 - 58 / 22 - 52 cm??? M-MODE Aortic Root Diameter MM 2.9 cm LA Systolic Diameter MM 2.7 cm LA Ao Ratio MM 0.9 AV Cusp Separation MM 1.9 cm DOPPLER AV Peak Velocity 146.8 cm/s AV Peak Gradient 8.6 mmHg LVOT Peak Velocity 104.3 cm/s LVOT Peak Gradient 4.4 mmHg MV Area PHT 3.4 cm??? Mitral E Point Velocity 109.8 cm/s Mitral A Point Velocity 61.0 cm/s Mitral E to A Ratio 1.8 MV Deceleration Time 221.8 ms TR Peak Velocity 233.7 cm/s TR Peak Gradient 21.8 mmHg Right Ventricular Systolic Press 26.6 mmHg FINDINGS Left Ventricle Left ventricular cavity size normal. Left ventricular wall thickness normal. Normal left ventricular diastolic filling pattern. Left ventricular ejection fraction is estimated at 55-60 %. P/CABG septal wall motion. Right Ventricle Normal right ventricular size and function. Right ventricular systolic pressure within normal limits. Right Atrium Normal right atrial size. Left Atrium Normal left atrial size. Mitral Valve Structurally normal mitral valve. Mild mitral annular calcification. Trace mitral regurgitation. Aortic Valve No aortic valve stenosis or regurgitation. Tricuspid Valve Structurally normal tricuspid valve. Mild tricuspid regurgitation. No evidence of pulmonary hypertension. Pulmonic Valve Structurally normal pulmonic valve. Trace pulmonic regurgitation. Pericardium No pericardial effusion. Aorta Normal size aortic root and proximal ascending aorta. CONCLUSIONS Normal LV systolic function Previewed by: Dr. Fuentes Nolasco MD (Electronically Signed) Final Date: 21 January 2022 15:22
--- NOTE | 2022-01-21 15:40 | P.DS ---
Providers Date of admission: 01/20/22 17:18 Expected date of discharge: 01/21/22 Attending physician: Eriberto Sidhu MD Consults: 01/20/22 17:18 Consult Physician Urgent Consulting Provider: [facility] Consult Reason/Comments: Unstable angina Do you want consulting provider notified?: Yes Primary care physician: Roberto Campoverde MD Hospital Course: Discharge Diagnosis: Chest pain, acute coronary event ruled out History of CAD with CABG x 3 Nicotine dependence. Patient received encouragement and education on the importance of smoking cessation and the risks associated with continued use. Hospital Course: Patient is a 51-year-old female with a past medical history of sudden cardiac arrest with ROSC followed by CABG x 3 in 2017 and nicotine dependence smoking one pack of cigarettes daily. Patient reports that she followed orthopedics nurse Dr. Estrella in [place] until he retired a couple of years ago and since has not been evaluated by a orthopedics nurse. She reports her PCP manages her medications and states that he recently about one year ago started her on Xarelto for cardiovascular event risk reduction. Patient presented to the emergency department today with a chief complaint of chest pain. She reports that she had been experiencing intermittent pain to midsternal chest radiating into her back and down both arms. Patient reports this pain has waxed and waned since Thursday and seems to be worse with activity, patient reports it is the same feeling she had prior to her cardiac arrest resulting in her CABG. Patient denies having any headache, lightheadedness, dizziness, diaphoresis, palpitations, shortness of breath, cough or congestion, nausea, vomiting, or experiencing any numbness/tingling/weakness/swelling in her extremities. Patient states she is on aspirin 81 mg daily, atorvastatin 40 mg daily, and Xarelto 2.5 mg daily. She denies missing any of her medications. She does admit to smoking approximately one pack of cigarettes daily or so. She denies any alcohol or drug use. Patient underwent full evaluation in the emergency department. EKG revealing sinus tachycardia at [address] depression in inferior leads II, III, and aVF. Chest x-ray negative for acute cardiopulmonary process. CBC, coags, and CMP unremarkable. Troponin less than 0.012. Patient was given aspirin 324 mg 1 dose along with Nitro past and started on Heparin infusion for unstable angina. Patient has been admitted under our services with consultation to cardiology. Patient monitored overnight and reported full resolution of previously reported chest pain and denied having any further complaints this morning. Troponins trended all negative at less than 0.0123 draws. . Lipid profile unremarkable. Patient was evaluated by cardiology and taken for stress test. Charlene scan stress test negative showing no skin to graphic evidence for reversible ischemia. Echocardiogram also revealing normal EF 55-60% status post CABG. cardiology recommending outpatient follow-up in our office in 1 week. Patient is medically stable at this time, vital signs unremarkable. Patient to follow up outpatient with PCP in 1-2 days and cardiology in 1 week. Patient strongly encouraged to stop smoking. Physical exam: Vital signs reviewed and stable. General: Nontoxic, no distress and appears stated age. Derm: Skin warm and dry, normal coloration for ethnicity. Head: Atraumatic, normocephalic and symmetric. Eyes: EOMs intact, no lid lag, and anicteric sclera Mouth: no lip lesions, mucus membranes moist Cardiovascular: regular rate and rhythm with normal S1S2, soft systolic murmur, positive posterior tibial pulses bilaterally, and cap refill < 2 seconds. Lungs: Respirations even, regular, and unlabored on room air. Lungs CTA bilaterally, no rhonchi, no rales, no wheezing, and no accessory muscle usage. Abdominal: soft, nontender to palpation, no guarding, no appreciable organomegaly Ext: ROM intact. No gross muscle atrophy, no edema, no contractures Neuro: Speech clear, face symmetrical and CN II-XII grossly intact with no noted focal neuro deficits Psych: Alert and oriented to person, place, time, and situation. Appropriate and pleasant affect. A total of 35 minutes of time were spent preparing this complex discharge summary. Pt was discharged on 01/21/22 at 3:37 PM. Patient Condition at Discharge: Stable Plan - Discharge Summary Discharge Rx Participant: No New Discharge Prescriptions: Continue Atorvastatin Calcium [Lipitor] 40 mg PO HS Aspirin EC [Ecotrin Low Dose] 81 mg PO DAILY Rivaroxaban [Xarelto] 2.5 mg PO DAILY Discharge Medication List Aspirin EC [Ecotrin Low Dose] 81 mg PO DAILY 01/20/22 [History] Atorvastatin Calcium [Lipitor] 40 mg PO HS 01/20/22 [History] Rivaroxaban [Xarelto] 2.5 mg PO DAILY 01/20/22 [History] Follow up Appointment(s)/Referral(s): Fuentes Nolasco MD [STAFF PHYSICIAN] - 1 Week Roberto Campoverde MD [Primary Care Provider] - 1-2 days Activity/Diet/Wound Care/Special Instructions: Activity: As tolerated. Take breaks as needed. Diet: Heart healthy and carb consistent diet. Avoid salts, or foods with hidden salts such as canned or boxed foods and frozen dinners. Extra salt makes your heart work harder and traps the fluid in your body for longer. Special Instructions: Take all of your medications as directed and remember to keep all of your doctor's appointments and follow-up as needed. Strongly encourage you to stop smoking. Thank you for allowing us to participate in your care, it was truly a pleasure having you for our patient!!! Discharge Disposition: HOME SELF-CARE
--- NOTE | 2022-01-21 15:46 | CA ---
Lexiscan Nuclear Stress Test Report Name: Amparo Jewell Exam Date: 01/21/2022 10:32 Exam Location: [place] [facility] Ht (in): 60 Wt (lb): 122 BSA: 1.51 Ordering Phys: Asiya Tilley Referring Phys: AKIKO,, Technologist: ELEONORA,, Age: 51 Gender: F : 1970 Procedure CPT: Indications: Reflex order-Stress test ICD-10 Codes: Patient History: Chest Pain Medications: Meds past 24 hrs: Pretest Chest Pain: STRESS TEST Lexiscan Protocol Exercise Duration (min:sec): 01:[address] Depressions (mm): Angina Score: Macdonald Score: Resting HR (bpm): 47 Peak HR (bpm): 101 Resting BP (mmHg): 115 / 65 Peak BP (mmHg): 136 / 85 MPHR: 167 Target HR: 142 % MPHR: 60 METS: 1.0 Total Dose: Peak Dose: Atropine: Double Product: 99077 BP Response: Stress Termination: Completion of Infusion Stress Symptoms: HEADACHE,FLUSHED,NAUSEA Stress Summary: ECG ANALYSIS Resting ECG: Stress ECG: CONCLUSIONS Normal stress test without any ECG abnormalities or arrhythmias during Lexiscan infusion Nuclear portion will be reported separately Dr. Fuentes Nolasco MD (Electronically Signed) Final Date: 21 January 2022 15:45
== END 2022-01-21 16:26 | disposition home or self-care (01) ==
LOC: EC 14:21 → 3SCARD 17:18 → 6NMEDSUR 21:58
PROVIDERS: ADMIT Hospitalist; ATTEND Hospitalist
DX: R07.89 Other chest pain (principal); I95.9 Hypotension, unspecified; I45.2 Bifascicular block; I25.10 Atherosclerotic heart disease of native coronary artery without angina pectoris; E78.5 Hyperlipidemia, unspecified; D64.9 Anemia, unspecified; F41.9 Anxiety disorder, unspecified; F17.210 Nicotine dependence, cigarettes, uncomplicated; Z79.82 Long term (current) use of aspirin; Z79.01 Long term (current) use of anticoagulants; Z79.899 Other long term (current) drug therapy; Z95.1 Presence of aortocoronary bypass graft; Z90.49 Acquired absence of other specified parts of digestive tract; Z90.710 Acquired absence of both cervix and uterus; Z98.891 History of uterine scar from previous surgery; Z86.74 Personal history of sudden cardiac arrest; Z71.6 Tobacco abuse counseling
CPT/HCPCS: 96376 ×2; 96366 ×3; 96365; 99291; 36415; 93017; 93306; 83880; 80061; 80053; 83735; 84484; 85025; 85610; 85730 ×2; 71046; 78452; G0378 ×3; A9500; J1644 ×3; J2785; 93005